=== PATIENT | male | born 1950 | race African-American/Black ===

== ENCOUNTER → 2017-10-25 | Day surgery (SDC) | payer MEDICARE ==
[~2017-10-25] MED LIST: LIDOCAINE 2% 100 MG/5 ML SYRINGE.; PROPOFOL 40 ML IV
[2017-10-25] MEDS: IV RINGERS,LACTATED 1000ML 1,000 ML IV (08:27)
== END | disposition home or self-care (01) ==
LOC: ENDOS 07:45
DX: Z12.11 Encounter for screening for malignant neoplasm of colon (principal); I10 Essential (primary) hypertension; E78.5 Hyperlipidemia, unspecified; Z79.899 Other long term (current) drug therapy
CPT/HCPCS: G0121; J2704

== ENCOUNTER → 2021-06-01 | Outpatient (CLI) | payer MEDICARE ==
[2017-10-25 10:10] VITALS: BP 148/73
[~2021-06-01] MED LIST changes: +ASPI-630 PO; -LIDOCAINE 2% 100 MG/5 ML SYRINGE.; +LISI10TA16 PO; +METO50TA6 PO; +PRAV40TA PO; -PROPOFOL 40 ML IV; +TRIA1TAB3 PO
--- NOTE | 2021-06-01 12:25 | KCIC ---
EXAM: Brain MRI without contrast. HISTORY: Parkinson's disease. Bladder cancer. TECHNIQUE: Multiplanar, multisequence magnetic resonance imaging of the brain was performed without c ontrast. COMPARISON: None. FINDINGS: There is no restricted diffusion to suggest acute or subacute infarction. There is no susce ptibility effect to suggest hemorrhage. There is no mass effect or midline shift. There is no hydroce phalus. There are multiple scattered focal areas of signal change throughout the cerebral white matter, most commonly due to chronic small vessel disease in patients of this age. There is cerebral atrophy. The orbits are unremarkable. There is a small left maxillary sinus mucous tension cysts superimposed on paranasal sinus mucosal thickening. The mastoid air cells are clear. There are normal flow voids w ithin the cerebral vessels. There is no suspicious calvarial lesion. IMPRESSION: 1. No acute intracranial finding. 2. Scattered areas of signal change within the cerebral white matter, most commonly due to chronic sm all vessel disease in patients of this age. 3. Mild cerebral atrophy. Electronically signed by: Destiny Vincent MD (06/01/2021 12:22 PM) [id number]
== END ==
LOC: KCIC MRI 10:50
PROVIDERS: ATTEND Nurse Practitioner Family
DX: G20 Parkinson's disease (principal); G31.9 Degenerative disease of nervous system, unspecified
CPT/HCPCS: 70551